=== PATIENT | male | born 1970 | race Two or more races ===

== ENCOUNTER 2017-02-07 05:48 | Observation (INO) | payer OTHER ==
[~2017-02-07] VITALS: Ht 185.4 cm; Wt 126.0 kg
[2017-02-07] MEDS ORDERED: INSULIN HUMAN REGULAR 1,000 UNITS/10 ML VIAL SQ PRN (06:15)
[2017-02-07] MEDS ORDERED: LACTATED RINGER'S 1000 ML IV PRN (06:15)
[2017-02-07] MEDS ORDERED: SODIUM CHLORID 0.9% 500 ML IV PRN (06:15)
[2017-02-07] MEDS ORDERED: POVIDONE IODINE 5% (ANTISEPSIS KIT) 4 APPLICATIONS EACH NARE PRN (06:15)
[2017-02-07] MEDS ORDERED: METOPROLOL TARTRATE 25 MG TAB PO PRN (06:15)
[2017-02-07] MEDS ORDERED: CHLORHEXIDINE GLUCONATE 2 % 1 PACK (2 CLOTHS) TOPICAL PRN (06:15)
[2017-02-07 06:26] VITALS: BP 145/82; PULSE 72; RESP 16; TEMP 98.1; O2SAT 97
[2017-02-07] MEDS: AMPICILLIN/SULBAC 3 GM/NS 100 ML IV SCH ×8 (06:37→20:50)
[2017-02-07] MEDS ORDERED: OXYMETAZOLINE HCL 0.05% 15 ML NASAL SPRAY ONE ×2 (07:04→07:20)
[2017-02-07] MEDS ORDERED: LIDOCAINE 1%/EPINEPHrine 1:100,000 SOLN 20 ML VIAL ONE (07:05)
[2017-02-07] MEDS ORDERED: BACITRACIN TOP OINT 15 GM TUBE ONE (07:05)
[2017-02-07] MEDS ORDERED: MUPIROCIN 2% OINT 22 GM TUBE ONE (07:05)
[2017-02-07] MEDS ORDERED: DO NOT ADM ANY ANTICOAGULANT DRUGS PRN (09:20)
[2017-02-07] MEDS ORDERED: MIDAZOLAM HCL 2 MG/2 ML VIAL ONE (09:29)
[2017-02-07] MEDS ORDERED: fentaNYL CITRATE 250 MCG/5 ML AMP ONE (09:29)
[2017-02-07] MEDS: LACTATED RINGER'S 1000 ML INJ 1,000 ML IV SCH ×2 (09:40→20:51)
[2017-02-07] MEDS ORDERED: ONDANSETRON HCL 4 MG/2 ML VIAL IV PUSH PRN (09:45)
--- NOTE | 2017-02-07 10:00 | MP ---
cc: BRENT NYE M.D. DATE OF SURGERY February 07, [address] Brent Nye PREOPERATIVE DIAGNOSES 1. Bilateral anterior nasal stenosis. 2. Nasal airway obstruction. 3. Nasal septal deviation. 4. Hypertrophy inferior turbinates. 5. Obstructive sleep apnea. POSTOPERATIVE DIAGNOSES 1. Bilateral anterior nasal stenosis. 2. Nasal airway obstruction. 3. Nasal septal deviation. 4. Hypertrophy inferior turbinates. 5. Obstructive sleep apnea. OPERATION PERFORMED 1. Open repair bilateral anterior nasal stenosis. 2. Open repair nasal septal fracture. 3. Bilateral submucosal resection of inferior turbinates. INDICATIONS Documented in the history and physical. DESCRIPTION OF OPERATION The patient was taken to OR #6 and placed in the supine position. Following induction of general anesthesia and intubation, the nose was packed bilaterally with cotton pledgets saturated in 0.05% oxymetazoline and the nasal septum, inferior turbinates as well as the columella, nasal vestibule, nasal tip and dorsum were injected with a total of 12 mL of 1% Xylocaine with epinephrine 1:100,000. He was then prepped and draped for surgery. The packing was removed and a W-plasty incision was made on the inferior surface of the columella and this was carried down sharply to the inferior borders of the medial crura of lower lateral cartilages. With further sharp dissection, the skin was elevated from the columella, nasal tip and dorsum following these inferior borders of medial crura anteriorly and superiorly and exposing the lower lateral cartilages. This continued up into the junction of the bony and cartilaginous septum. Sharp dissection then continued between the medial crura until the anterior end of the quadrangular cartilage was encountered. This was sharply displaced into the right nasal vestibule due to a sharply angulated fracture approximately 1 cm from the tip of the anterior quadrangular cartilage. Soft tissue was elevated bilaterally as far as the junction of the bony and cartilaginous septum. At this point a 2 x 2.5-cm segment of the quadrangular cartilage was removed preserving 1.5-cm dorsal and caudal cartilaginous struts. The mucosa was then elevated from the bony septum of the maxillary crest and these were removed using Tess forceps and a 6-mm Juanjose chisel on the maxillary crest. The caudal cartilaginous strut was then addressed. This was the anterior end of the quadrangular cartilage which was sharply displaced into the right nasal vestibule. It was cut entirely free of the dorsal cartilaginous strut then rotated toward the midline. It was sewn in place using 5-0 clear nylon. A single interrupted suture, one superiorly anchoring it to the dorsal cartilaginous strut in one inferiorly anchoring it to the soft tissue investing the anterior nasal spine. The septal mucosa was then reapproximated bilaterally using a quilting stitch of 4-0 plain gut and the skin was reattached to the anterior cartilaginous strut using horizontal mattress sutures of 4-0 Vicryl. The columella was then reconstructed incorporating a 3 x 15-mm segment of the quadrangular cartilage between the medial crura, held in place by interrupted sutures of the 5-0 clear nylon. At this point the inferior turbinates were addressed. They were fractured out medially and stab incisions made along their inferior surfaces. Through these incisions submucosal soft tissue was reduced using a curette and preserving the conchal bone. The incision was then cauterized using the suction Bovie at 40 bucio and the remnants of the inferior turbinates were relateralized the lateral nasal wall. Next, the skin was redraped over the nasal tip and the incision was closed using interrupted sutures of 5-0 fast-absorbing plain gut. The nose was then irrigated and suctioned and was packed with Merocel tampons coated in mupirocin ointment and the procedure was terminated. The patient was reversed from anesthesia and taken to Recovery in good condition. There were no complications. Blood loss was 60 mL. MD ARMINDA Broussard/SONY /9:15 AM /9:42 AM
[2017-02-07] MEDS: ACETAMINOPHEN/HYDROcodone 325 MG/5 MG TAB PO PRN ×3 (11:03→18:47)
[2017-02-07 12:00] VITALS: BP 144/81; PULSE 75; RESP 19; TEMP 97.8; O2SAT 97
[2017-02-07] MEDS ORDERED: ONDANSETRON HCL 4 MG/2 ML VIAL IV PUSH ONE (12:00)
[2017-02-07] MEDS ORDERED: PROPOFOL 200 MG/20 ML AMP IV ONE (12:00)
[2017-02-07 16:00] VITALS: BP 144/84; PULSE 90; RESP 19; TEMP 97.8; O2SAT 99
[2017-02-07 18:29] VITALS: O2SAT 99
[2017-02-07 20:00] VITALS: BP 133/78; PULSE 89; RESP 20; TEMP 97.7; O2SAT 98
[2017-02-08] VITALS: BP 148/87; PULSE 83; RESP 20; TEMP 97.4; O2SAT 100
[2017-02-08] MEDS: ACETAMINOPHEN/HYDROcodone 325 MG/5 MG TAB PO PRN ×2 (02:28→08:40)
[2017-02-08] MEDS: AMPICILLIN/SULBAC 3 GM/NS 100 ML IV SCH ×2 (06:00)
[2017-02-08 08:00] VITALS: BP 139/84; PULSE 79; RESP 18; TEMP 98.8; O2SAT 98
[2017-02-08 08:17] VITALS: O2SAT 95
== END 2017-02-08 09:02 | disposition home or self-care (01) ==
LOC: HSDC 05:48 → N07B 10:52
PROVIDERS: ADMIT Otolaryngology; ATTEND Otolaryngology
DX: J34.2 Deviated nasal septum (principal); J34.3 Hypertrophy of nasal turbinates; J34.89 Other specified disorders of nose and nasal sinuses; G47.33 Obstructive sleep apnea (adult) (pediatric); H04.553 Acquired stenosis of bilateral nasolacrimal duct; K21.9 Gastro-esophageal reflux disease without esophagitis; E66.9 Obesity, unspecified; Z68.36 Body mass index [BMI] 36.0-36.9, adult
CPT/HCPCS: 00160; 30140; 30465; 30520; 96365; 96366; 96375; 96376; G0378; J0295; J2250; J2405; J3010; J7120